=== PATIENT | female | born 1975 | race African-American/Black ===

== ENCOUNTER 2025-07-12 10:41 | Outpatient (AMB) | payer OTHER, MEDICAID, SELFPAY ==
[2025-07-12 10:54] VITALS: BMI 25.1
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
--- OUTSIDE RECORDS SUMMARY | 2025-07-12 13:09 | XMS_ITS | Clinical Summary ---
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 MEDICAID - [place] Care Teams Vocational Examiner Relationship Specialty Start Date End Date Alley Ashton MD [address] [place] [address] PCP - General 10/31/07
--- OUTSIDE RECORDS SUMMARY | 2025-07-12 13:09 | XMS_ITS | Clinical Summary ---
Author Organization [facility] Address [address] [place] [address] Phone Care Team Providers Care Nuclear Process Engineer Name Role Phone Alley Ashton MD Primary Care Provider [phone] Allergies Active Allergy Reactions Criticality Noted Date Comments Azithromycin 12/28/2017 Sulfa (Sulfonamide Antibiotics) 08/2017 Medications drospirenone-eth inyl estradiol (KODY) 3-0.03 mg per tablet Take 1 tablet by mouth daily. Active Social History Tobacco Use Types Packs/Day Years Used Date Smoking Tobacco: Never Smokeless Tobacco: Never Alcohol Use Standard Drinks/Week Comments Yes 1 (1 standard drink = 0.6 oz pur e alcohol) Education Answer Date Recorded Are you interested in more education? Not on irineo e 12/25/2022 Are you concerned about learning? Not on file 12/25/2022 No 12/25/2022 No 12/25/2022 Digital Access Answer Date Recorded No 01/23/2023 No 01/23/2023 No 01/23/2023 Reliable internet access at home? Not on file 01/23/2023 Device with a working camera? Not on file Comments Unknown Sex and Gender Information Value Date Recorded Sex Assigned at Not on file Legal Sex Female 12:45 PM EDT Gender Identity Not on file Sexual Orientation Not on file Last Filed Vital Signs Vital Sign Reading Time Taken Comments Blood Pressure - - Pulse - - Temperature - - Respiratory Rate - - Oxygen Saturation - - Inhaled Oxygen Concentration - - Weight 52.2 kg (115 lb) 12/28/2017 3:47 PM EDT Height 149.9 cm (4' 11 ) 12/28/2017 3:47 PM EDT Body Mass Index 23.23 12/28/2017 3:47 PM EDT Plan of Treatment Health Maintenance Due Date Last Done Comments LIPID PANEL 1973 DEPRESSION SCREENING 1985 HEPATITIS C SCREENING 1991 HIV ONE-TIME SCREENING (18-65 YEARS) 1991 PAP SMEAR 1994 MAMMOGRAM 2013 COLOGUARD 2018 COLONOSCOPY 2018 COLORECTAL CANCER SCREENING 2018 FIT TEST 2018 FOBT 2018 SIGMOIDOSCOPY 2018 VIRTUAL COLONOSCOPY 2018 Adult Td,Tdap Booster 08/11/2022 08/11/2012, 002 PNEUMOCOCCAL VACCINES (50+ years) (1 of 1 - PCV) 2023 ZOSTER VACCINES (1 of 2) 2023 INFLUENZA VACCINE (#1) 2025 , 06/14/2018, 06/08/2017, Additional history exists COVID-19 VACCINE (3 - 2024- season) 2025 06/30/2021, 06/09/2021 RSV VACCINE (1 - 1-dose 75+ series) 2048 SMOKING STATUS SCREENING (Once After 26 Yrs) Completed 12/28/2017 HEPATITIS A VACCINES Aged Out No long er eligible based on patient's age to complete this topic HIB VACCINES Aged Out No longer eligi ble based on patient's age to complete this topic IPV VACCINES Aged Out No longer eligi ble based on patient's age to complete this topic MENINGOCOCCAL VACCINES (ACWY) Aged Out No longer eligible based on patient's age to complete this topic MENINGOCOCCAL VACCINES (B) Aged Out N o longer eligible based on patient's age to complete this topic Medical Devices Not on file Insurance [facility] Address: [address] [address] [facility] [place] [address] [facility] Address: [address] [address] [facility] [place] [phone] [facility] [place] [address] Member Subscriber Plan / Payer (Ef fective 2017-Present) Name:Nidia Mccollum Relation to Subscriber:Self Name:Nidia Mccollum Payer ID:Not on file Group ID:Not on file Type:O Address: [address] [facility] Address: [address] [address] [facility] Address: [address] [address] [facility] [id number] [place] [place], [place] [address] [facility] Address: [address] [facility] Care Teams Nuclear Process Engineer Relationship Specialty Start Date End Date Alley Ashton MD [address] [place] [address] PCP - General Internal Medicine 11/24/17 Additional Source Comments The information contained in this document represents components of the legal health record. It is not the complete legal health record.[facility]
== END 2025-07-12 11:43 | disposition home or self-care (01) ==
LOC: HO.HPHYS 10:41
PROVIDERS: PCP Internal Medicine; Visit Provider Physical Medicine & Rehabilitation
DX: M53.3 Sacrococcygeal disorders, not elsewhere classified (principal); M46.1 Sacroiliitis, not elsewhere classified; M54.12 Radiculopathy, cervical region; M48.02 Spinal stenosis, cervical region
CPT/HCPCS: 99214; G2211

== ENCOUNTER 2025-07-30 07:57 | Day surgery (SDC) | payer OTHER, MEDICAID, SELFPAY ==
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
--- OUTSIDE RECORDS SUMMARY | 2025-07-20 10:23 | XMS_ITS | Clinical Summary ---
Author Organization [facility] Address [address] [place] [address] Phone Care Team Providers Care Checker/Stocker Name Role Phone Alley Ashton MD Primary Care Provider [phone] Allergies Active Allergy Reactions Criticality Noted Date [...] topic Medical Devices Not on file Insurance [facility] Address: [address] [address] [facility] Address: [address] [address] [facility] Member Subscriber Plan / Payer (Ef fective 2017-Present) Name:Nidia Mccollum Relation to Subscriber:Self Name:Nidia Mccollum Payer ID:Not on file Group ID:Not on file Type:O Address: [place] [id number] [facility] [place] [address] [facility] [place] [facility] Member Subscriber Plan / Payer (Ef fective 2024-Present) Name:Nidia Mccollum Relation to Subscriber:Self Name:Nidia Mccollum Payer ID:Not on file Type:PPO Address: [place] [id number] [place] [address] Member Subscriber Plan / Payer (Ef fective 2017-Present) Name:Nidia Mccollum Relation to Subscriber:Self Name:Nidia Mccollum Payer ID:Not on file Group ID:Not on file Type:O Address: [address] [facility] Member Subscriber Plan / Payer (Ef fective 2017-Present) Name:Nidia Mccollum Relation to Subscriber:Self Name:Nidia Mccollum Payer ID:Not on file Group ID:Not on file Type:O Address: [address] [facility] Care Teams Checker/Stocker Relationship Specialty Start Date End Date Alley Ashton MD [address] [place] [address] PCP - General Internal Medicine 11/24/17 Additional Source Comments The information contained in this document represents components of the legal health record. It is not the complete legal health record.[facility]
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
--- NOTE | 2025-07-24 12:04 | P.CONAN_ITS ---
HPI - Anesthesia Eval Consult details Narrative: 50 yr old female for bilateral Sacroiliac Joint Injection BPPV: uses meclizine prn PMFSH Active Problems Active Problems: All Active Problems Cervical spinal stenosis (Acute) Cervical radiculitis (Acute) Sacroiliac inflammation (Acute) Sacroiliac dysfunction (Acute) Surgical History Surgical History History of tonsillectomy (Unknown) History of hysterectomy (Unknown) History of cholecystectomy (Unknown) Social History Social History Household Members: None Comment: doesn't drink Patient Tobacco Use Status: Never used Tobacco Current occupational status: employed Meds Allergies Allergy/AdvReac Type Severity Reaction Status Date / Time azithromycin Allergy Unknown Unknown Verified 07/12/25 10:54 Sulfa (Sulfonamide Allergy Unknown Unknown Verified 07/12/25 10:54 Antibiotics) tramadol Allergy Unknown Rash Verified 07/12/25 10:54 Home Medications ?Medication ?Instructions ?Recorded ?Confirmed ?Last Taken ?Type cyclobenzaprine 5 mg tablet 5 mg PO BID PRN muscle spa sm 07/09/25 Unknown History drospirenone 3 mg-ethinyl 1 tab PO DAILY 07/09/25 Unk nown History estradiol 0.03 mg tablet naproxen 500 mg tablet 500 mg PO BID PRN mild pain 07/09/25 Unknown History
[2025-07-24 15:08] VITALS: BMI 25.1
--- NOTE | ~2025-07-30 | FL_ITS ---
EXAMINATION: XR FLUOROSCOPY WITH IMAGES CLINICAL INFORMATION: Procedural guidance COMPARISON: None available. TECHNIQUE: Fluoroscopy time: 19 seconds DAP: 2.9 mGycm2 Images: 4 FINDINGS: Fluoroscopy provided for procedure. There is a needle and contrast in the region of bilateral SI joints. FL/FL guidance in OR IMPRESSION: Fluoroscopy provided for procedure. See procedure report for details. Electronically signed by: Anjum Myles MD 07/30/2025 04:08 PM [facility]
[2025-07-30 08:09] VITALS: BMI 24.2
[2025-07-30 08:27] VITALS: BP 111/70; PULSE 84; RESP 18; TEMP 36.8; O2SAT 100
[2025-07-30] MEDS: Lactated Ringers 1,000 ML 100 ML IVCONT (08:27)
[2025-07-30 08:58] LABS: UPreg QC Valid YES
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
--- NOTE | 2025-07-30 09:04 | W.PM.OPN ---
Operative Note Operative Note Date of Service: 07/30/25 Narrative: Procedure performed: Bilateral sacroiliac joint injection Preop diagnosis: SI joint mediated pain, sacroiliitis Postop diagnosis: The same Anesthesia: Mac After informed consent was obtained patient was brought into the procedure room and placed in prone position on the procedure table. Skin over lumbar sacral area was prepped and draped in the usual sterile manner. The inferior portion of the right sacroiliac joint was visualized utilizing fluoroscopy. 3.5 in 22 gauge spinal needle was introduced percutaneously and advanced into the joint. Needle placement was verified utilizing 0.5 cc of Omnipaque contrast solution. 2.5 cc of therapeutic solution containing 20 mg of triamcinolone and 2% lidocaine was injected after negative aspiration for blood. The C-arm was obliqued about 30? in the contralateral direction an area just medial the proximal portion of the sacroiliac joint was visualized. 3.5 in 22 gauge spinal needle was introduced percutaneously and advanced to enter the area. Once in place, needle placement was identified utilizing 1 cc of Omnipaque contrast solution. Total volume of 2.5 cc containing 40 mg of triamcinolone and 2% lidocaine was injected to block the lateral branches at the sacroiliac ligament. The identical procedure was repeated on the opposite side. Radiation exposure was documented in the chart.
[2025-07-30 09:52] VITALS: BP 100/51; PULSE 83; RESP 10; TEMP 36.1; O2SAT 100
[2025-07-30 10:06] VITALS: BP 102/62; PULSE 68; RESP 16; TEMP 36.2; O2SAT 98
== END 2025-07-30 10:55 | disposition home or self-care (01) ==
PROVIDERS: Anesthesiology; PCP Internal Medicine; Visit Provider Physical Medicine & Rehabilitation
PROC: (CPT 27096; principal; 2025-07-30 09:00)
DX: M46.1 Sacroiliitis, not elsewhere classified (principal); M53.3 Sacrococcygeal disorders, not elsewhere classified; M54.12 Radiculopathy, cervical region; M48.02 Spinal stenosis, cervical region; Z88.1 Allergy status to other antibiotic agents; Z88.2 Allergy status to sulfonamides; Z88.5 Allergy status to narcotic agent; Z98.890 Other specified postprocedural states
CPT/HCPCS: 27096; 81025; J0665; J2003; J2250; J2704; J3010; J3301; Q9967

== ENCOUNTER → 2025-07-30 07:57 | Outpatient (BNV) | payer OTHER, MEDICAID, SELFPAY | PROVIDERS: PCP Internal Medicine; Visit Provider Physical Medicine & Rehabilitation | DX: M53.3 Sacrococcygeal disorders, not elsewhere classified (principal) | CPT/HCPCS: 27096 ==